=== PATIENT | female | born 1995 | race African-American/Black ===

== ENCOUNTER 2021-08-10 21:34 | Emergency (ER) | payer OTHER ==
[~2021-08-10] VITALS: Ht 167.6 cm; Wt 95.3 kg
[~2021-08-10 21:34] MED LIST: CIPRO500 MG; HYDROCODONE-AP1 EAC6 PO; IBUPROFEN 600600 M1 PO; IRON325 PO; TRAMADOL 50 MG50 MG PO; TRINATE TABLET1 TAB PO
[2021-08-10 22:51] VITALS: BP 124/95
== END 2021-08-10 22:53 | disposition home or self-care (01) ==
LOC: ER 21:34
DX: M25.552 Pain in left hip (principal); J45.909 Unspecified asthma, uncomplicated; Z98.51 Tubal ligation status; Z98.890 Other specified postprocedural states; Z79.899 Other long term (current) drug therapy; Z88.0 Allergy status to penicillin; Z88.1 Allergy status to other antibiotic agents; Z88.8 Allergy status to other drugs, medicaments and biological substances; Z91.010 Allergy to peanuts